=== PATIENT | male | born 1955 | race Two or more races ===

== ENCOUNTER 2021-09-16 10:28 | Outpatient (RCR) | payer MEDICARE, MEDICAID, SELFPAY ==
--- NOTE | 2021-09-16 17:26 | MHC.PT.EP ---
[facility] [place] Office [place] Office [place] Office [address] [phone] F: [phone] F: [phone] F: [phone] F: [phone] Physical Therapy Plan of Care Date of Evaluation: Date of Surgery: Diagnosis: R shoulder pain. Assessment: Pt is a 65 y/o male referred to PT for R shoulder pain resulting in decreased tolerance for reaching high shelves, carrying objects of weight, reaching his back for hygiene and dressing, and laying on his R side secondary to decreased R shoulder ROM and strength, increased R shoulder tissue tension, and pain. Pt is deemed an appropriate candidate to receive skilled PT in order to address his physical limitations to improve his functional ability. Frequency and Duration: The patient will be seen 2 x / wk x 5 wks. Short Term Goals: Initiate HEP Full pain free shoulder flexion. initial 150 deg with painful end. Mat Worker Goals: I with HEP. improve R shoulder abd MT to > 4/5; initial 4-/5. Pt will be able to place objects on high shelf with managed Sx. Pt will be able to reach his back for hygiene and dressing with managed Sx; initial: unable. Treatment Plan: Modalities to reduce pain, spasms and effusion. Manual therapy to restore motion and function. Therapeutic exercise to improve strength and flexibility. Neuromuscular re-education for posture and balance. Therapeutic activities to return to functional activities of daily living. Electronically signed by: Zan Concepcion PT. Please sign and return to therapist. Thank you for your referral.
--- NOTE | 2022-02-08 11:53 | MHC.PT.DC ---
[facility] [place] Office [place] Office [place] Office [address] [address] [phone] F: [phone] F: [phone] F: [phone] F: [phone] Physical Therapy Discharge Report Diagnosis: R shoulder pain. Date of Surgery: Date of Evaluation: 09/16/21 Date of Discharge: 09/16/21 Treatments to Date: 1 Cancellations to Date: No Shows to Date: Discharge Status: Patient Elected to Stop Discharge Summary: Electronically signed by: Son Hair PT Please sign and return to therapist. Thank you for your referral.
== END 2022-02-08 11:54 | disposition home or self-care (01) ==
LOC: HO.PTCHIC 10:28
PROVIDERS: PCP Internal Medicine; Visit Provider Internal Medicine
DX: M25.511 Pain in right shoulder (principal)
CPT/HCPCS: 97110; 97161

== ENCOUNTER 2021-12-02 08:53 | Outpatient (REF) | payer MEDICARE, MEDICAID, SELFPAY ==
--- NOTE | ~2021-12-02 | XR_ITS ---
EXAMINATION: XR SHOULDER, RIGHT CLINICAL INFORMATION: M25.511 - Pain in right shoulder COMPARISON: None TECHNIQUE: Right shoulder is imaged in 4 views. FINDINGS: No fracture, dislocation, or destructive process. The glenohumeral joint is normal. The acromioclavicular alignment is normal. There are borderline degenerative changes acromioclavicular joint. There are no visible rotator cuff calcifications. XR/XR shoulder RT min 2V IMPRESSION: Borderline degenerative changes acromioclavicular joint. No visible rotator cuff calcifications.
[2021-12-02 11:36] LABS: Alanine Aminotransferase 45 U/L (0-40); Albumin Level 4.6 g/dL (3.5-5.0); Alkaline Phosphatase 79 U/L (39-117); Anion Gap 13 (12-20); Aspartate Amino Transferase 35 U/L (5-37); Bilirubin Total 0.8 mg/dL (0.0-1.0); Blood Urea Nitrogen 14 mg/dL (9-16); Calcium 10.3 mg/dL (8.4-10.2); Carbon Dioxide 29 mmol/L (22-29); Chloride 107 mmol/L (96-108); Cholesterol 291 mg/dL; Estimated Glomerular Filt Rate 60; Glucose Fasting 108 mg/dL (60-99); HDL Cholesterol 44 mg/dL; LDL Cholesterol Calculated 221 mg/dl; Potassium 5.1 mmol/L (3.3-5.1); Sodium 144 mmol/L (135-145); Triglycerides 132 mg/dL
== END 2021-12-02 08:54 | disposition home or self-care (01) ==
LOC: HO.XRAY 08:53
PROVIDERS: PCP Internal Medicine; Visit Provider Internal Medicine
DX: E03.9 Hypothyroidism, unspecified (principal); E78.5 Hyperlipidemia, unspecified
CPT/HCPCS: 36415; 73030; 80053; 80061; 84443

== ENCOUNTER 2022-04-22 07:54 | Outpatient (REF) | payer MEDICARE, MEDICAID, SELFPAY ==
[2022-04-22 09:23] LABS: Alanine Aminotransferase 26 U/L (0-40); Albumin Level 4.6 g/dL (3.5-5.0); Alkaline Phosphatase 87 U/L (39-117); Anion Gap 11 (12-20); Aspartate Amino Transferase 25 U/L (5-37); Bilirubin Total 0.7 mg/dL (0.0-1.0); Blood Urea Nitrogen 15 mg/dL (9-16); Calcium 9.9 mg/dL (8.4-10.2); Carbon Dioxide 29 mmol/L (22-29); Chloride 106 mmol/L (96-108); Cholesterol 288 mg/dL; Estimated Glomerular Filt Rate > 60; Glucose Fasting 110 mg/dL (60-99); HDL Cholesterol 45 mg/dL; LDL Cholesterol Calculated 215 mg/dl; Sodium 141 mmol/L (135-145); Total Protein 7.8 g/dL (6.5-8.0); Triglycerides 144 mg/dL
== END 2022-04-22 07:55 | disposition home or self-care (01) ==
LOC: HO.LAB 07:54
PROVIDERS: PCP Internal Medicine; Visit Provider Internal Medicine
DX: E78.5 Hyperlipidemia, unspecified (principal); E03.9 Hypothyroidism, unspecified; I10 Essential (primary) hypertension
CPT/HCPCS: 36415; 80053; 80061; 84443

== ENCOUNTER 2022-08-10 09:13 | Outpatient (REF) | payer MEDICARE, MEDICAID, SELFPAY ==
[2022-08-10 11:27] LABS: Alanine Aminotransferase 31 U/L (0-40); Albumin Level 4.5 g/dL (3.5-5.0); Alkaline Phosphatase 82 U/L (39-117); Anion Gap 10 (12-20); Aspartate Amino Transferase 24 U/L (5-37); Bilirubin Total 0.9 mg/dL (0.0-1.0); Blood Urea Nitrogen 16 mg/dL (9-16); Calcium 9.9 mg/dL (8.4-10.2); Carbon Dioxide 31 mmol/L (22-29); Chloride 102 mmol/L (96-108); Cholesterol 283 mg/dL; Estimated Glomerular Filt Rate > 60; Glucose Fasting 109 mg/dL (60-99); HDL Cholesterol 38 mg/dL; LDL Cholesterol Calculated 201 mg/dl; Potassium 4.4 mmol/L (3.3-5.1); Sodium 139 mmol/L (135-145); Thyroid Stimulating Hormone 1.89 uIU/mL (0.32-4.0); Total Protein 7.8 g/dL (6.5-8.0); Triglycerides 222 mg/dL
== END 2022-08-10 09:14 | disposition home or self-care (01) ==
LOC: HO.LAB 09:13
PROVIDERS: PCP Internal Medicine; Visit Provider Internal Medicine
DX: E03.9 Hypothyroidism, unspecified (principal); E78.5 Hyperlipidemia, unspecified; I10 Essential (primary) hypertension
CPT/HCPCS: 36415; 80053; 80061; 84443

== ENCOUNTER 2022-12-15 08:14 | Outpatient (REF) | payer MEDICARE, MEDICAID, SELFPAY ==
[2022-12-15 10:23] LABS: Alanine Aminotransferase 30 U/L (0-40); Albumin Level 4.4 g/dL (3.5-5.0); Alkaline Phosphatase 83 U/L (39-117); Anion Gap 11 (12-20); Aspartate Amino Transferase 27 U/L (5-37); Bilirubin Total 0.6 mg/dL (0.0-1.0); Blood Urea Nitrogen 16 mg/dL (9-16); Calcium 9.3 mg/dL (8.4-10.2); Carbon Dioxide 29 mmol/L (22-29); Chloride 106 mmol/L (96-108); Cholesterol 270 mg/dL; Estimated Glomerular Filt Rate > 60; Glucose Fasting 98 mg/dL (60-99); HDL Cholesterol 44 mg/dL; LDL Cholesterol Calculated 199 mg/dl; Potassium 4.4 mmol/L (3.3-5.1); Sodium 142 mmol/L (135-145); Total Protein 7.4 g/dL (6.5-8.0); Triglycerides 138 mg/dL
[2022-12-15 10:41] LABS: Thyroid Stimulating Hormone 3.27 uIU/mL (0.32-4.0)
== END 2022-12-15 08:15 | disposition home or self-care (01) ==
LOC: HO.LAB 08:14
PROVIDERS: PCP Internal Medicine; Visit Provider Internal Medicine
DX: E03.9 Hypothyroidism, unspecified (principal); E78.5 Hyperlipidemia, unspecified
CPT/HCPCS: 36415; 80053; 80061; 84443

== ENCOUNTER → 2023-05-30 10:23 | Outpatient (BNVA) | payer MEDICARE, MEDICAID, SELFPAY | PROVIDERS: PCP Internal Medicine; Visit Provider Nurse Practitioner Family ==

== ENCOUNTER 2023-06-10 07:44 | Outpatient (REF) | payer MEDICARE, MEDICAID, SELFPAY ==
[2023-06-10 09:13] LABS: Alanine Aminotransferase 25 U/L (0-40); Albumin Level 4.4 g/dL (3.5-5.0); Alkaline Phosphatase 75 U/L (39-117); Anion Gap 10 (12-20); Aspartate Amino Transferase 22 U/L (5-37); Bilirubin Total 0.6 mg/dL (0.0-1.0); Blood Urea Nitrogen 18 mg/dL (9-16); Calcium 9.9 mg/dL (8.4-10.2); Carbon Dioxide 29 mmol/L (22-29); Chloride 107 mmol/L (96-108); Cholesterol 299 mg/dL (<200); Estimated Glomerular Filt Rate 57; Glucose Fasting 106 mg/dL (60-99); HDL Cholesterol 44 mg/dL (>40); LDL Cholesterol Calculated 218 mg/dL (<100); Potassium 4.6 mmol/L (3.3-5.1); Sodium 141 mmol/L (135-145); Total Protein 7.8 g/dL (6.5-8.0); Triglycerides 185 mg/dL (<150)
[2023-06-10 09:27] LABS: Thyroid Stimulating Hormone 2.66 uIU/mL (0.32-4.0)
== END 2023-06-10 07:45 | disposition home or self-care (01) ==
LOC: HO.LAB 07:44
PROVIDERS: PCP Internal Medicine; Visit Provider Internal Medicine
DX: E78.5 Hyperlipidemia, unspecified (principal); E03.9 Hypothyroidism, unspecified; R73.02 Impaired glucose tolerance (oral)
CPT/HCPCS: 36415; 80053; 80061; 84443

== ENCOUNTER 2023-08-03 16:09 | Outpatient (AMB) | payer MEDICARE, MEDICAID, SELFPAY ==
--- NOTE | 2023-08-03 16:11 | MHC.PC.OV ---
Vital Signs 08/03/23 16:12 08/05/23 12:33 Height 5 ft 6 in Weight 196 lb BMI 31.6 BP 152/100 H 150/100 H Blood Pressure Location Lt brachial Lt brachial Position Sitting Sitting Pulse 65 Pulse Source Pulse Oximeter Pulse Oximetry (%) 99 Oxygen Delivery Method Room Air Intake Visit Reasons: Thyroid, lipids Intake Note: Patient here for a follow up thyroid, lipids Resource Manager Forester Required: No Accompanied by: Self / Same As Patient Allergies No Known Allergies Allergy (Verified 08/03/23 16:32) Medication List - Last Reconciled 08/03/23 by Melissa Wallace MD aspirin (Adult Aspirin Regimen) 81 mg PO DAILY atorvastatin 80 mg PO BEDTIME 90 days bisacodyl (Dulcolax (bisacodyl)) 10 mg (2 x 5 mg) PO ONCE 1 day levothyroxine 75 mcg PO DAILY 90 days polyethylene glycol 3350 (Miralax) 238 grams PO ONCE Tobacco use date assessed: 12/20/22 Fall risk assessment: No Falls in past year Last assessed Fall Risk: 08/03/23 Dental Screening Dental Screen Date: 08/03/23 Did you have a dental visit in the last 12 months?: Yes Did you have a dental problem in the last 6 months where you did not have access to dental care?: No Was dental information given to patient?: Patient has dentist HPI HPI Comments History of Present Illness Details This is a 67-year-old male with hypertension, hypothyroidism, dyslipidemia and mild recurrent major depression that comes today for follow-up on his conditions. Blood pressure elevated and will be recheck in 3 weeks by nurse navigator. TSH normal. Cholesterol elevated but he admits not been compliant with statins. Depression has been in remission. No chest pain or shortness of breath. [facility] Medical History Physical exam ROSEY (generalized anxiety disorder) Mild recurrent major depression Class 1 obesity with body mass index (BMI) of 31.0 to 31.9 in adult Right shoulder pain Knee osteoarthritis Ganglion cyst of wrist Dyslipidemia Hypothyroidism Essential hypertension Surgical History Lipoma History of circumcision Family History Father Diabetes Hypertension Mother No problems noted. Maternal Grandmother Breast cancer Family/Other Substance use disorder Mental health disorder Social History Housing: Apartment Alcohol intake: never Patient Tobacco Use Status: Never used Tobacco e-Cigarette/Vaping Use: Never Used Second Hand Smoke Exposure: No service: No Current occupational status: disabled Cognitive needs: Yes Hearing needs: No Vision needs: Yes Questionnaire Thrive Questionnaire Date Thrive assessed: 12/20/22 ROSEY-7 AMB Questionnaire ROSEY-7 Date ROSEY - 7 assessed: 12/20/22 Source: Developed by Drs. Zaki Kline, Pema Serra, Nhan Lin and colleagues, with an educational shawn from [employer]. Review of Systems Const All systems reviewed & are unremarkable except as noted in HPI and below Eyes Reports no additional complaints, Denies change in vision and Denies other visual disturbances Card Denies chest pain at rest, Denies chest pain with activity, Denies edema, Denies irregular heart rhythm, Denies claudication, Denies dyspnea, Denies dyspnea on exertion, Denies orthopnea, Denies paroxysmal nocturnal dyspnea and Denies slow heart rate Resp Denies cough, Denies dyspnea and Denies dyspnea on exertion GI Denies abdominal pain, Denies change in bowel habits, Denies excessive flatus, Denies nausea and Denies vomiting Denies urinary hesitancy, Denies urinary incontinence and Denies urinary urgency Musc Denies abnormal gait, Denies atrophy, Denies deformity and Denies limited range of motion Skin/Breast Denies bleeding lesions, Denies changing lesions and Denies rash Neuro Denies abnormal gait, Denies behavioral changes and Denies lack of coordination Psych Denies behavioral changes Endo Denies cold intolerance Jhony/Lymph Denies easy bleeding and Denies easy bruising Aller/Immun Denies urticaria Physical exam (Primary Care) Vital Signs: Last Vital Signs Pulse 65 08/03/23 16:12 BP 152/100 H 08/03/23 16:12 Pulse Ox 99 08/03/23 16:12 Oxygen Delivery Method Room Air 08/03/23 16:12 BMI result Body Mass Index 31.6 Tobacco/Smoking Status: Tobacco use Status Tobacco use date assessed 12/20/22 08/03/23 16:15 Patient Tobacco Use Status Never used Tobacco 08/03/23 16:15 e-Cigarette/Vaping Use Never Used 08/03/23 16:15 Thrive Assessment: Date of Thrive Assessment Date Thrive assessed 12/20/22 08/03/23 16:15 Eyes General: appearance normal, both eyes and all related structures Eyelids: Yes eyelids normal Conjunctivae: conjunctivae normal Neck Neck: Yes normal visual inspection and Yes supple Resp Effort & Inspection: normal respiratory effort Auscultation: clear to auscultation bilaterally Cardio Jugular venous distension: no JVD Rate: regular rate Rhythm: regular rhythm Heart sounds: S1 normal heart sound present and S2 normal heart sound present Extrem General: Yes full ROM Assessment and Plan Assessment & Plan (1) Mild recurrent major depression: Code(s): F33.0 - Major depressive disorder, recurrent, mild Plan: In remission. (2) Dyslipidemia: Code(s): E78.5 - Hyperlipidemia, unspecified Plan: Be compliant with statins. (3) Hypothyroidism: Code(s): E03.9 - Hypothyroidism, unspecified Plan: Continue levothyroxine. (4) Essential hypertension: Code(s): I10 - Essential (primary) hypertension Plan: Recheck blood pressure with nurse navigator in 3 weeks. Blood pressure goal is equal or less than 130/80 Orders: Orders Lipid Panel 4 Months E78.5 - Hyperlipidemia, unspecified Comprehensive [place]. Panel Fast 4 Months I10 - Essential (primary) hypertension Thyroid Stimulating Hormone 4 Months E03.9 - Hypothyroidism, unspecified Medications: New ezetimibe 10 mg PO DAILY 90 days 90 tabs 1RF Refilled atorvastatin 80 mg PO BEDTIME 90 days 90 tabs 0RF Coding Level of Care Code Est Pt Level 4 (37083) Diagnoses Mild recurrent major depression F33.0 Dyslipidemia E78.5 Hypothyroidism E03.9 Essential hypertension I10 Time Spent (min) 22
[2023-08-03 16:12] VITALS: BP 152/100; PULSE 65; O2SAT 99; BMI 31.6
[2023-08-05 12:33] VITALS: BP 150/100
== END 2023-08-03 16:43 | disposition home or self-care (01) ==
PROVIDERS: PCP Internal Medicine; Visit Provider Internal Medicine
DX: F33.0 Major depressive disorder, recurrent, mild (principal); E78.5 Hyperlipidemia, unspecified; E03.9 Hypothyroidism, unspecified; I10 Essential (primary) hypertension
CPT/HCPCS: 99214

== ENCOUNTER 2023-12-20 08:23 | Outpatient (REF) | payer MEDICARE, MEDICAID, SELFPAY ==
[2023-12-20 10:08] LABS: Alanine Aminotransferase 31 U/L (0-40); Albumin Level 4.5 g/dL (3.5-5.0); Alkaline Phosphatase 72 U/L (39-117); Anion Gap 11 (12-20); Aspartate Amino Transferase 25 U/L (5-37); Bilirubin Total 0.7 mg/dL (0.0-1.0); Blood Urea Nitrogen 17 mg/dL (9-16); Calcium 10.1 mg/dL (8.4-10.2); Carbon Dioxide 31 mmol/L (22-29); Chloride 104 mmol/L (96-108); Cholesterol 208 mg/dL (<200); Estimated Glomerular Filt Rate 59; Glucose Fasting 114 mg/dL (60-99); HDL Cholesterol 41 mg/dL (>40); LDL Cholesterol Calculated 125 mg/dL (<100); Potassium 4.2 mmol/L (3.3-5.1); Sodium 142 mmol/L (135-145); Triglycerides 211 mg/dL (<150)
[2023-12-20 10:15] LABS: Thyroid Stimulating Hormone 2.34 uIU/mL (0.32-4.0)
== END 2023-12-20 08:24 | disposition home or self-care (01) ==
LOC: HO.LAB 08:23
PROVIDERS: PCP Internal Medicine; Visit Provider Internal Medicine
DX: I10 Essential (primary) hypertension (principal); E03.9 Hypothyroidism, unspecified; E78.5 Hyperlipidemia, unspecified
CPT/HCPCS: 36415; 80053; 80061; 84443

== ENCOUNTER 2023-12-27 13:37 | Outpatient (AMB) | payer MEDICARE, MEDICAID, SELFPAY ==
--- NOTE | 2023-12-27 13:43 | A.OFFPC_ITS ---
Vital Signs 12/27/23 13:44 12/27/23 14:37 Height 5 ft 6 in Weight 201 lb BMI 32.4 BP 148/96 H 150/90 H Blood Pressure Location Lt brachial Lt brachial Position Sitting Sitting Intake Visit Reasons: Annual Exam Intake Note: Patient here for a physical exam Special Education Assistant Required: No Accompanied by: Self / Same As Patient Allergies No Known Allergies Allergy (Verified 12/27/23 14:00) Medication List - Last Reconciled 12/27/23 by Melissa Wallace MD aspirin (Adult Aspirin Regimen) 81 mg PO DAILY atorvastatin 80 mg PO BEDTIME 90 days bisacodyl (Dulcolax (bisacodyl)) 10 mg (2 x 5 mg) PO ONCE 1 day ezetimibe 10 mg PO DAILY 90 days levothyroxine 75 mcg PO DAILY 90 days polyethylene glycol 3350 (Miralax) 238 grams PO ONCE Tobacco use date assessed: 12/27/23 Fall risk assessment: No Falls in past year Last assessed Fall Risk: 12/27/23 Dental Screening Dental Screen Date: 12/27/23 Did you have a dental visit in the last 12 months?: Yes Did you have a dental problem in the last 6 months where you did not have access to dental care?: No Was dental information given to patient?: Patient has dentist HPI HPI Comments History of Present Illness Details This is a 68-year-old male that comes for his physical exam. Last colonoscopy at [facility] was 2009 and showed tubular adenoma but then he had another colonoscopy 2014 in [place] and was negative. She did saw Gastroenterology here and he is waiting to receive a call to schedule colonoscopy. No chest pain or shortness of breath. Cholesterol still elevated and dietary changes were advised. He eats pizza or fried rice every Tuesday. Blood pressure elevated today and will be recheck in 3 weeks by nurse navigator.. [facility] Medical History (Updated 12/27/23 @ 14:41 by Melissa Wallace MD) Physical exam ROSEY (generalized anxiety disorder) Mild recurrent major depression Class 1 obesity with body mass index (BMI) of 31.0 to 31.9 in adult Right shoulder pain Knee osteoarthritis Ganglion cyst of wrist Dyslipidemia Hypothyroidism Essential hypertension Surgical History (Updated 12/27/23 @ 14:04 by Melissa Wallace MD) H/O colonoscopy Lipoma History of circumcision Family History Father Diabetes Hypertension Mother No problems noted. Maternal Grandmother Breast cancer Family/Other Substance use disorder Mental health disorder Social History Housing: Apartment Alcohol intake: never Patient Tobacco Use Status: Never used Tobacco e-Cigarette/Vaping Use: Never Used Second Hand Smoke Exposure: No service: No Current occupational status: disabled Cognitive needs: Yes Hearing needs: No Vision needs: Yes Questionnaire PHQ-9 Over the last 2 weeks, how often have you been bothered by any of the following problems? 1. Little interest or pleasure in doing things: not at all 2. Feeling down, depressed, or hopeless: not at all 3. Trouble falling or staying asleep, or sleeping too much: not at all 4. Feeling tired or having little energy: not at all 5. Poor appetite or overeating: not at all 6. Feeling bad about yourself - or that you are a failure or have let yourself or your family down: not at all 7. Trouble concentrating on things, such as reading the newspaper or watching television: not at all 8. Moving or speaking so slowly that other people could have noticed. Or the opposite - being so fidgety or restless that you have been moving around a lot more than usual: not at all 9. Thoughts that you would be better off or of hurting yourself in some way: not at all Total score: 0 Depression Screening Interpretation: Negative Depression Screening Done: Yes 94625 - PHQ-9 Billing: Yes Source: Developed by Drs. Zaki Kline, Pema Serra, Nhan Lin and colleagues, with an educational shawn from [employer]. Thrive Questionnaire Date Thrive assessed: 12/27/23 I am a: Patient What is your living situation today?: I have a steady place to live Within the past 12 months, did the food you bought not last and you didn't have the money to get more?: Never true Within the past 12 months, did you worry whether your food would run out before you got money to buy more?: Never true Do you have trouble paying for medicines?: No Do you have trouble getting transportation to medical appointments?: No Do you have trouble paying your heating and electricity bill?: No Do you have trouble taking care of your child, family member or friend?: No Do you have trouble with day-to-day activities such as bathing, preparing meals, shopping, managing finances, etc.?: No Are you currently unemployed and looking for a job?: No Are you interested in more education?: No Please select the resources that you would like help with: None Currently or been in a relationship where the following occur: no concerns reported THRIVE Score: 0 AUDIT C Alcohol Use Questionnaire (AUDIT-C) 1. How often do you have a drink containing alcohol?: Never Total Score: 0 Score Reviewed/Action Taken: No ROSEY-7 AMB Questionnaire ROSEY-7 Date ROSEY - 7 assessed: 12/27/23 Feeling nervous, anxious, or on edge: 0 = Not at all Not being able to stop or control worryin = Not at all Worrying too much about different things: 0 = Not at all Trouble relaxin = Not at all Being so restless that it is hard to sit still: 0 = Not at all Becoming easily annoyed or irritable: 0 = Not at all Feeling afraid as if something awful might happen: 0 = Not at all Total ROSEY-7 score (0-4 normal; 5-9 mild; 10-14 moderate; 15-21 severe): 0 Source: Developed by Drs. Zaki Kline, Pema Serra, Nhan Lin and colleagues, with an educational shawn from [employer]. ROSEY-7 Assessment Billing ROSEY-7 Assessment Tool: ROSEY-7 Assessment 91592 Review of Systems Const All systems reviewed & are unremarkable except as noted in HPI and below Eyes Reports no additional complaints, Denies change in vision and Denies other visual disturbances Card Denies chest pain at rest, Denies chest pain with activity, Denies edema, Denies irregular heart rhythm, Denies claudication, Denies dyspnea, Denies dyspnea on exertion, Denies orthopnea, Denies paroxysmal nocturnal dyspnea and Denies slow heart rate Resp Denies cough, Denies dyspnea and Denies dyspnea on exertion GI Denies abdominal pain, Denies change in bowel habits, Denies excessive flatus, Denies nausea and Denies vomiting Denies urinary hesitancy, Denies urinary incontinence and Denies urinary urgency Musc Denies abnormal gait, Denies atrophy, Denies deformity and Denies limited range of motion Skin/Breast Denies bleeding lesions, Denies changing lesions and Denies rash Neuro Denies abnormal gait and Denies lack of coordination Physical exam (Primary Care) Vital Signs: Last Vital Signs BP 148/96 H 12/27/23 13:44 BMI result Body Mass Index 32.4 Tobacco/Smoking Status: Tobacco use Status Tobacco use date assessed 12/27/23 12/27/23 13:48 Patient Tobacco Use Status Never used Tobacco 12/27/23 13:48 e-Cigarette/Vaping Use Never Used 12/27/23 13:48 PHQ-9: PHQ-9 Score PHQ-9: Total score 0 12/27/23 14:05 Depression Screening Interpretation: Negative Thrive Assessment: Date of Thrive Assessment Date Thrive assessed 12/27/23 12/27/23 13:48 Currently or been in a relationship where the following occur: no concerns reported Const Orientation/consciousness: patient oriented x3 HENDC Head: Yes normal to inspection, Yes normocephalic and Yes atraumatic Ears: external ears normal Eyes General: appearance normal, both eyes and all related structures Eyelids: Yes eyelids normal Conjunctivae: conjunctivae normal Neck Neck: Yes normal visual inspection and Yes supple Resp Effort & Inspection: normal respiratory effort Auscultation: clear to auscultation bilaterally Cardio Jugular venous distension: no JVD Rate: regular rate Rhythm: regular rhythm Heart sounds: S1 normal heart sound present and S2 normal heart sound present GI Inspection: Yes normal to inspection Palpation (GI): Soft to palpation and nontender Auscultation: normal bowel sounds Skin General skin exam: no rashes or lesions noted Neuro General: patient oriented x3 and no focal motor deficits Extrem General: Yes full ROM Psych Appearance: grossly normal Assessment and Plan Assessment & Plan (1) Physical exam: Code(s): Z00.00 - Encounter for general adult medical examination without abnormal findings Plan: Repeat in a year. Orders: Orders US abdomen complete Today R10.11 - Right upper quadrant pain Lipid Panel 4 Months E78.5 - Hyperlipidemia, unspecified Comprehensive [place]. Panel Fast 4 Months R73.02 - Impaired glucose tolerance (oral) Thyroid Stimulating Hormone 4 Months E03.9 - Hypothyroidism, unspecified Coding Level of Care Code Est Pt Prev Care >65y(29494) Diagnoses Physical exam Z00.00 Additional Codes ROSEY-7 Assessment Billing - ROSEY-7 Assessment Tool: ROSEY-7 Assessment [id number] ([id number]) Time Spent (min) 32
[2023-12-27 13:44] VITALS: BP 148/96; BMI 32.4
[2023-12-27 14:37] VITALS: BP 150/90
== END 2023-12-27 14:16 | disposition home or self-care (01) ==
PROVIDERS: PCP Internal Medicine; Visit Provider Internal Medicine
DX: Z00.00 Encounter for general adult medical examination without abnormal findings (principal)
CPT/HCPCS: 99397

== ENCOUNTER 2025-08-07 15:03 | Outpatient (AMB) | payer MEDICARE, MEDICAID, SELFPAY ==
--- NOTE | 2025-08-07 15:09 | A.OFFPC_ITS ---
Vital Signs 08/07/25 15:10 Height 5 ft 6 in Weight 201 lb 6 oz BMI 32.5 BP 152/90 H Blood Pressure Location Lt brachial Position Sitting Respiration 18 Pulse 76 Pulse Source Pulse Oximeter Temp Source Temporal Artery Scan Pulse Oximetry (%) 97 Oxygen Delivery Method Room Air Intake Visit Reasons: Request PE and review meds Parking Lot Manager Required: No Accompanied by: Self / Same As Patient Allergies No Known Allergies Allergy (Verified 08/07/25 15:25) Medication List - Last Reconciled 08/07/25 by Melissa Wallace MD aspirin (Adult Aspirin Regimen) 81 mg PO DAILY levothyroxine 75 mcg PO DAILY 90 days Tobacco use date assessed: 08/07/25 Fall risk assessment: No Falls in past year Last assessed Fall Risk: 08/07/25 Dental Screening Dental Screen Date: 08/07/25 Did you have a dental visit in the last 12 months?: Yes Did you have a dental problem in the last 6 months where you did not have access to dental care?: No Was dental information given to patient?: Patient has dentist HPI HPI Comments History of Present Illness Details The patient is a 69-year-old male presenting for a follow-up visit for medication and health maintenance. His current medications include aspirin and levothyroxine 75 mcg for a thyroid condition. He reports not taking his c holesterol medication due to stomach upset. The patient has no known drug allergies. Regarding preventative screenings, the patient is due for a colonoscopy. He was scheduled to have the procedure in [place] but was unable to complete it due to the passing of his . [facility] Medical History Physical exam ROSEY (generalized anxiety disorder) Mild recurrent major depression Class 1 obesity with body mass index (BMI) of 31.0 to 31.9 in adult Right shoulder pain Knee osteoarthritis Ganglion cyst of wrist Dyslipidemia Hypothyroidism Essential hypertension Surgical History H/O colonoscopy Lipoma History of circumcision Family History Father Diabetes Hypertension Mother No problems noted. Maternal Grandmother Breast cancer Family/Other Substance use disorder Mental health disorder Social History Housing: Apartment Alcohol intake: never Patient Tobacco Use Status: Never used Tobacco e-Cigarette/Vaping Use: Never Used Second Hand Smoke Exposure: No service: No Current occupational status: disabled Cognitive needs: Yes Hearing needs: No Vision needs: Yes Questionnaire PHQ-9 Over the last 2 weeks, how often have you been bothered by any of the following problems? 1. Little interest or pleasure in doing things: not at all 2. Feeling down, depressed, or hopeless: not at all 3. Trouble falling or staying asleep, or sleeping too much: not at all 4. Feeling tired or having little energy: not at all 5. Poor appetite or overeating: not at all 6. Feeling bad about yourself - or that you are a failure or have let yourself or your family down: not at all 7. Trouble concentrating on things, such as reading the newspaper or watching television: not at all 8. Moving or speaking so slowly that other people could have noticed. Or the opposite - being so fidgety or restless that you have been moving around a lot more than usual: not at all 9. Thoughts that you would be better off or of hurting yourself in some way: not at all Total score: 0 Depression Screening Interpretation: Negative Depression Screening Done: Yes 96204 - PHQ-9 Billing: Yes Source: Developed by Drs. Zaki Kline, Pema Serra, Nhan Lin and colleagues, with an educational shawn from [employer]. Thrive Questionnaire Date Thrive assessed: 08/07/25 I am a: Patient What is your living situation today?: I have a steady place to live Within the past 12 months, did the food you bought not last and you didn't have the money to get more?: Sometimes True Within the past 12 months, did you worry whether your food would run out before you got money to buy more?: Never true Do you have trouble paying for medicines?: No Do you have trouble getting transportation to medical appointments?: No Do you have trouble paying your heating and electricity bill?: No Do you have trouble taking care of your child, family member or friend?: No Do you have trouble with day-to-day activities such as bathing, preparing meals, shopping, managing finances, etc.?: No Are you currently unemployed and looking for a job?: No Are you interested in more education?: No Please select the resources that you would like help with: None Currently or been in a relationship where the following occur: No concerns reported THRIVE Score: 1 AUDIT C Alcohol Use Questionnaire (AUDIT-C) 1. How often do you have a drink containing alcohol?: Never Total Score: 0 Score Reviewed/Action Taken: No ROSEY-7 AMB Questionnaire ROSEY-7 Date ROSEY - 7 assessed: 08/07/25 Feeling nervous, anxious, or on edge: 0 = Not at all Not being able to stop or control worryin = Not at all Worrying too much about different things: 0 = Not at all Trouble relaxin = Not at all Being so restless that it is hard to sit still: 0 = Not at all Becoming easily annoyed or irritable: 0 = Not at all Feeling afraid as if something awful might happen: 0 = Not at all Total ROSEY-7 score (0-4 normal; 5-9 mild; 10-14 moderate; 15-21 severe): 0 Source: Developed by Drs. aZki Kline, Pema Serra, Nhan Lin and colleagues, with an educational shawn from [employer]. ROSEY-7 Assessment Billing ROSEY-7 Assessment Tool: ROSEY-7 Assessment 37393 Review of Systems Const All systems reviewed & are unremarkable except as noted in HPI and below Card Denies chest pain at rest, Denies chest pain with activity, Denies edema, Denies irregular heart rhythm, Denies claudication, Denies dyspnea, Denies dyspnea on e xertion, Denies orthopnea, Denies paroxysmal nocturnal dyspnea and Denies slow heart rate Resp Denies cough, Denies dyspnea and Denies dyspnea on exertion GI Denies abdominal pain, Denies change in bowel habits, Denies excessive flatus, Denies nausea and Denies vomiting Denies urinary hesitancy, Denies urinary incontinence and Denies urinary urgency Physical exam (Primary Care) Vital Signs: Last Vital Signs Pulse 76 08/07/25 15:10 Resp 18 08/07/25 15:10 BP 152/90 H 08/07/25 15:10 Pulse Ox 97 08/07/25 15:10 Oxygen Delivery Method Room Air 08/07/25 15:10 BMI result Body Mass Index 32.5 Tobacco/Smoking Status: Tobacco use Status Tobacco use date assessed 08/07/25 08/07/25 15:20 Patient Tobacco Use Status Never used Tobacco 08/07/25 15:20 e-Cigarette/Vaping Use Never Used 08/07/25 15:20 PHQ-9: PHQ-9 Score PHQ-9: Total score 0 08/07/25 15:20 Depression Screening Interpretation: Negative Thrive Assessment: Date of Thrive Assessment Date Thrive assessed 08/07/25 08/07/25 15:20 Currently or been in a relationship where the following occur: No concerns reported Resp Effort & Inspection: normal respiratory effort Auscultation: clear to auscultation bilaterally Cardio Jugular venous distension: no JVD Rate: regular rate Rhythm: regular rhythm Heart sounds: S1 normal heart sound present and S2 normal heart sound present Extrem General: Yes full ROM Office Procedures Flu Questionnaire Does the patient have a severe egg allergy?: No Does the patient have severe life threatening allergies?: No Does the patient have a fever or illness today?: No Has the patient ever had Guillain-Bergoo Syndrome?: No Has the patient ever had any past reaction to a flu shot?: No Immunizations Fluarix [id number] (PF) 45 mcg (15 mcg x 3)/0.5 mL IM syringe Performing Provider: Melissa Wallace MD Per[facility] [place] [facility] Administered by: Ewelina Fonseca RN on 08/07/25 15:26 Dose Route Admin Location Dispensed Lot Number Expiration Date [facility] Four Slide Operator 0.5 mL IM Right Deltoid 0.5 mL [id number] 04/01/26 43685-550-70 [employer] VIS Given Date VIS Provided VIS Publication Date 08/07/25 Single Vaccine 24 Eligibility Eligibility Date Funding Source Not [facility] Eligible 08/07/25 Private Coding Level of Care Code Est Pt Level 3 (10110) Diagnoses Dyslipidemia E78.5 Hypothyroidism E03.9 Additional Codes PHQ-9 - 68731 - PHQ-9 Billing: Yes ([id number]) ROSEY-7 Assessment Billing - ROSEY-7 Assessment Tool: ROSEY-7 Assessment 26721 ([id number]) Time Spent (min) 19 Assessment & Plan Assessment & Plan (1) Dyslipidemia: Code(s): E78.5 - Hyperlipidemia, unspecified Category: Medical (2) Hypothyroidism: Code(s): E03.9 - Hypothyroidism, unspecified Category: Medical Plan Plan 1. Health Maintenance An influenza vaccine was administered during the visit. The patient was advised to obtain a COVID-19 vaccine at a pharmacy. A referral for a colonoscopy will be placed. Orders were placed for laboratory tests to check thyroid function, cholesterol, blood sugar, kidney function, and liver function. A follow-up appointment is scheduled in three weeks to review results. 2. Hypothyroidism The patient will continue taking levothyroxine 75 mcg daily. Thyroid function will be assessed with the ordered lab work. 3. Hyperlipidemia The patient is currently not taking his prescribed cholesterol medication due to stomach upset. A cholesterol panel has been ordered, and management will be re- evaluated at the follow-up visit. Orders: Orders Influenza [id number] Immunization Today Z23 - Encounter for immunization Lipid Panel Today E78.5 - Hyperlipidemia, unspecified Comprehensive Assumption. Panel Fast Today I10 - Essential (primary) hypertension Thyroid Stimulating Hormone Today E03.9 - Hypothyroidism, unspecified Referrals Open Access Screening Colonoscopy Referral Z12.12 - Encounter for screening for malignant neoplasm of rectum
[2025-08-07 15:10] VITALS: BP 152/90; PULSE 76; RESP 18; O2SAT 97; BMI 32.5
== END 2025-08-07 15:45 | disposition home or self-care (01) ==
LOC: HO.HMCH 15:04
PROVIDERS: PCP Internal Medicine; Visit Provider Internal Medicine
DX: E78.5 Hyperlipidemia, unspecified (principal); E03.9 Hypothyroidism, unspecified; Z23 Encounter for immunization

== ENCOUNTER → 2025-08-07 15:03 | Outpatient (BNVA) | payer MEDICARE, MEDICAID, SELFPAY | PROVIDERS: PCP Internal Medicine; Visit Provider Internal Medicine | DX: E03.9 Hypothyroidism, unspecified (principal); E78.5 Hyperlipidemia, unspecified; Z13.31 Encounter for screening for depression; Z13.39 Encounter for screening examination for other mental health and behavioral disorders; Z23 Encounter for immunization | CPT/HCPCS: 90471; 90656; 96127; 99212 ==

== ENCOUNTER 2025-08-10 07:40 | Outpatient (REF) | payer MEDICARE, MEDICAID, SELFPAY ==
[2025-08-10 09:57] LABS: Alanine Aminotransferase 55 U/L (0-40); Albumin Level 4.7 g/dL (3.5-5.0); Alkaline Phosphatase 86 U/L (39-117); Anion Gap 11 (12-20); Aspartate Amino Transferase 44 U/L (5-37); Blood Urea Nitrogen 15 mg/dL (9-16); Calcium 9.4 mg/dL (8.4-10.2); Carbon Dioxide 27 mmol/L (22-29); Chloride 107 mmol/L (96-108); Cholesterol 260 mg/dL (<200); Estimated Glomerular Filt Rate > 60; HDL Cholesterol 40 mg/dL (>40); Potassium 4.4 mmol/L (3.3-5.1); Sodium 141 mmol/L (135-145); Total Protein 7.7 g/dL (6.5-8.0); Triglycerides 164 mg/dL (<150)
[2025-08-10 10:04] LABS: Thyroid Stimulating Hormone 2.33 uIU/mL (0.32-4.0)
== END 2025-08-10 07:41 | disposition home or self-care (01) ==
LOC: HO.LAB 07:40
PROVIDERS: PCP Internal Medicine; Visit Provider Internal Medicine
DX: I10 Essential (primary) hypertension (principal); E78.5 Hyperlipidemia, unspecified; E03.9 Hypothyroidism, unspecified
CPT/HCPCS: 36415; 80053; 80061; 84443

== ENCOUNTER → 2025-08-22 11:02 | Outpatient (BNVA) | payer MEDICARE, MEDICAID, SELFPAY | PROVIDERS: PCP Internal Medicine | DX: Z01.30 Encounter for examination of blood pressure without abnormal findings (principal) | CPT/HCPCS: 99211 ==